=== PATIENT | female | born 1950 | race Caucasian/White ===

== ENCOUNTER → 2016-08-16 | Outpatient (CLI) | payer MEDICARE | END | disposition home or self-care (01) | LOC: CFH 10:29 | PROVIDERS: ATTEND Nurse Practitioner Family | DX: Z12.31 Encounter for screening mammogram for malignant neoplasm of breast (principal); Z13.820 Encounter for screening for osteoporosis; N95.9 Unspecified menopausal and perimenopausal disorder | CPT/HCPCS: 77080; G0202 ==

== ENCOUNTER 2017-10-31 10:32 | Emergency (ER) | payer MEDICARE ==
[~2017-10-31] VITALS: Ht 157.5 cm; Wt 61.7 kg
[2017-10-31 11:23] LABS: BASOPHILS # (AUTO) 0.07 x10^3/uL (0-0.1); BASOPHILS % (AUTO) 1 % (0-1); EOSINOPHILS # (AUTO) 0.14 x10^3/uL (0-0.4); EOSINOPHILS % (AUTO) 2 % (1-7); LYMPHOCYTES # (AUTO) 1.71 x10^3/uL (1-3.4); LYMPHOCYTES % (AUTO) 17 % (22-44); MD NO; MEAN CORPUSCULAR HEMOGLOBIN 30.1 pg (27.0-34.8); MEAN CORPUSCULAR HGB CONC 33.8 g/dL (32.4-35.8); MEAN PLATELET VOLUME 8.7 fL (7.4-10.4); MONOCYTES # (AUTO) 0.61 x10^3/uL (0.2-0.8); MONOCYTES % (AUTO) 6 % (2-9); NEUTROPHILS # (AUTO) 7.29 x10^3/uL (1.8-6.8); NEUTROPHILS % (AUTO) 74 % (42-75); PLATELET COUNT 243 x10^3/uL (130-400); RED BLOOD COUNT 4.89 x10^6/uL (3.82-5.3); RED CELL DISTRIBUTION WIDTH 13.5 % (9.6-15.2)
[2017-10-31] MEDS ORDERED: SODIUM CHLORIDE FLUSH 10ML SYR IVF ONE (11:30)
[2017-10-31 11:33] LABS: INTERNATIONAL NORMALIZED RATIO 1.01 (0.93-1.1); PROTHROMBIN TIME 10.4 Seconds (9.6-11.5)
[2017-10-31 11:52] LABS: ALBUMIN 3.9 g/dL (3.4-5.0); ANION GAP 4 mmol/L (5-15); CALCIUM 9.2 mg/dL (8.5-10.1); CHLORIDE 108 mmol/L (98-107)
[2017-10-31 11:56] LABS: ALANINE AMINOTRANSFERASE 36 U/L (12-78); ALKALINE PHOSPHATASE 78 U/L (45-117); BILIRUBIN,TOTAL 0.4 mg/dL (0.2-1.0); CREATININE 1.02 mg/dL (0.55-1.02); TOTAL PROTEIN 7.6 g/dL (6.4-8.2)
[2017-10-31] MEDS ORDERED: LEVO75TA PO (12:08)
[2017-10-31 13:28] LABS: MICROSCOPIC NOT IND
[2017-10-31 13:31] LABS: CULTURE INDICATED? NO
[2017-10-31] MEDS ORDERED: OMNIPAQUE 350 MG/ML, 100ML BOTTLE ONE (13:37)
[2017-10-31 15:04] VITALS: BP 111/66
== END 2017-10-31 15:14 | disposition home or self-care (01) ==
LOC: ED 15:08
DX: K64.8 Other hemorrhoids (principal)
CPT/HCPCS: 36415; 74177; 80053; 81003; 85025; 85610; 85730; 99285; Q9967

== ENCOUNTER → 2018-01-24 | Outpatient (CLI) | payer MEDICARE ==
[~2018-01-24] MED LIST: LEVO75TA PO
== END | disposition home or self-care (01) ==
LOC: CFH 11:14
PROVIDERS: ATTEND Nurse Practitioner Family
DX: Z12.31 Encounter for screening mammogram for malignant neoplasm of breast (principal)
CPT/HCPCS: 77063; 77067

== ENCOUNTER → 2019-02-26 | Outpatient (CLI) | payer MEDICARE | END | disposition home or self-care (01) | LOC: CFH 13:13 | PROVIDERS: ATTEND Physician Assistant Medical | DX: N64.4 Mastodynia (principal); F10.20 Alcohol dependence, uncomplicated | CPT/HCPCS: 77066; G0279 ==

== ENCOUNTER → 2019-03-27 | Outpatient (CLI) | payer MEDICARE | END | disposition home or self-care (01) | LOC: CFH 11:13 | PROVIDERS: ATTEND Physician Assistant Medical | DX: N95.8 Other specified menopausal and perimenopausal disorders (principal); M85.88 Other specified disorders of bone density and structure, other site; M80.859 Other osteoporosis with current pathological fracture, unspecified femur | CPT/HCPCS: 77080 ==